=== PATIENT | male | born 1995 | race African-American/Black ===

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

== ENCOUNTER 2017-08-06 19:07 | Emergency (ER) | payer BC, OTHER ==
[~2017-08-06] VITALS: Ht 175.3 cm; Wt 62.0 kg
[~2017-08-06 19:07] MED LIST changes: +IBUP1TAB7 PO; -IBUP600 PO; -LORTA5 PO; +ROBA500T PO; -TAMS0.4C67 PO
[2017-08-06 19:08] VITALS: BP 140/88; PULSE 88; RESP 16; TEMP 99.2; O2SAT 99
[2017-08-06] MEDS ORDERED: LIDOCAINE 1%/EPINEPHrine 1:100,000 SOLN 20 ML VIAL INFIL ONE (19:45)
[2017-08-06] MEDS ORDERED: AMOXICILLIN (TRIHYDRATE) 500 MG CAP PO ONE (19:45)
[2017-08-06] MEDS ORDERED: ACETAMINOPHEN/HYDROcodone 325 MG/5 MG TAB PO ONE (19:45)
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
[2017-08-06] MEDS ORDERED: AMOX500C PO (19:47)
[2017-08-06] MEDS ORDERED: NORC5TAB PO (19:47)
[2017-08-06] MEDS ORDERED: LIDOCAINE 1%/EPINEPHrine 1:100,000 SOLN 50 ML VIAL ONE (19:53)
--- NOTE | 2017-08-06 20:36 | RADRPT ---
EXAM DATE/TIME: 08/06/2017 19:56 [facility] COMPARISON: No previous studies available for comparison. INDICATIONS : Right hand pain, fall. MEDICAL HISTORY : None. SURGICAL HISTORY : None. ENCOUNTER: Initial ACUITY: 1 day PAIN SCORE: 8/10 LOCATION: Right medial hand FINDINGS: Three view examination of the right hand demonstrates no soft tissue swelling, dislocation, or fractu re. The carpal bones appear intact. The interphalangeal and metacarpophalangeal joints are intact. Bony mineralization is normal. CONCLUSION: Unremarkable examination of the right hand. Ben Landry MD on August 06, 2017 at 20:32 Board Certified Radiologist. This report was verified electronically.
== END 2017-08-06 20:37 | disposition home or self-care (01) ==
LOC: NEPD 19:07
DX: S01.511A Laceration without foreign body of lip, initial encounter (principal); S02.5XXA Fracture of tooth (traumatic), initial encounter for closed fracture; S63.91XA Sprain of unspecified part of right wrist and hand, initial encounter; W18.30XA Fall on same level, unspecified, initial encounter; Y93.41 Activity, dancing; Z87.442 Personal history of urinary calculi
CPT/HCPCS: 12011; 73130